=== PATIENT | male | born 1990 | race African-American/Black ===

== ENCOUNTER 2017-07-23 00:10 | Emergency (ER) | payer OTHER ==
[~2017-07-23] VITALS: Ht 195.6 cm; Wt 133.8 kg
[2017-07-23 00:53] VITALS: BP 152/96
[2017-07-23] MEDS ORDERED: cefTRIAXone SOD 1,000 MG VL IM ONE (02:30)
== END 2017-07-23 03:07 | disposition home or self-care (01) ==
LOC: ER 00:22
DX: S31.010A Laceration without foreign body of lower back and pelvis without penetration into retroperitoneum, initial encounter (principal); Z88.2 Allergy status to sulfonamides; Z91.040 Latex allergy status; W26.0XXA Contact with knife, initial encounter; Y93.89 Activity, other specified; Y92.89 Other specified places as the place of occurrence of the external cause; Y99.8 Other external cause status
CPT/HCPCS: 12002; 96372; 99283; J0696

== ENCOUNTER 2018-07-24 00:40 | Emergency (ER) | payer MEDICAID, OTHER ==
[~2018-07-24] VITALS: Ht 193 cm; Wt 129.3 kg
[2018-07-24] MEDS ORDERED: cefTRIAXone 1GM/50ML D5W 50 ML IV ONE (02:00)
[2018-07-24 03:18] VITALS: BP 133/75
== END 2018-07-24 05:13 | disposition home or self-care (01) ==
LOC: EDBD 00:40 → ER 00:42
DX: S16.1XXA Strain of muscle, fascia and tendon at neck level, initial encounter (principal); S01.111A Laceration without foreign body of right eyelid and periocular area, initial encounter; Z91.040 Latex allergy status; Y09 Assault by unspecified means; Y93.89 Activity, other specified; Y99.8 Other external cause status; Y92.89 Other specified places as the place of occurrence of the external cause
CPT/HCPCS: 70450; 70486; 72125; 94761; 96365; 99284; J0696